=== PATIENT | male | born 1980 ===

== ENCOUNTER 2022-06-14 23:56 | Inpatient (IN) ==
[2022-06-15] MEDS ORDERED: Lactated Ringers 1000 ml BAG 1,000 ML IV ONE ×3 (00:12→14:34)
[2022-06-15 00:42] LABS: ABS Basophils 0.1 10^3/ul (0-0.2); ABS Lymphocytes 1.2 10^3/ul (1.0-4.8); ABS Monocytes 0.7 10^3/ul (0-0.8); ABS Neutrophils 15.1 10^3/ul (1.5-7.7); Eosinophil % 0.1 %; Hematocrit 45 % (42-52); Hemoglobin 15.1 g/dL (14.0-18.0); Lymphocyte % 7.2 %; Mean Corpuscular HGB Conc 33 g/dL (31-36); Mean Corpuscular Hemoglobin 29 pg (27-31); Mean Corpuscular Volume 86 fL (80-94); Mean Platelet Volume 8.1 fL (7.4-10.4); Platelet Count 294 10^3/uL (150-450); Red Blood Count 5.26 10^6 /uL (4.18-5.48); Red Cell Distribution Width 13 % (10-15)
[2022-06-15 01:04] LABS: High Sens Troponin Baseline 12 pg/mL (<20)
[2022-06-15 01:06] LABS: ALT 77 U/L (7-52); AST 192 U/L (13-39); Acetaminophen < 15 mcg/mL; Albumin 4.4 g/dL (3.2-5.2); Albumin/Globulin Ratio 1.4 (1-3); Alcohol, S < 13 mg/dL (<13); Alkaline Phosphatase 80 U/L (35-149); Anion Gap 14 mmol/L (2-11); Blood Urea Nitrogen 27 mg/dL (6-24); C Reactive Protein 125.11 mg/L (<8.01); CO2 Carbon Dioxide 22 mmol/L (22-32); Calcium 9.9 mg/dL (8.6-10.3); Chloride 100 mmol/L (101-111); Globulin 3.1 g/dL (2-4); Glucose 123 mg/dL (70-100); Potassium 4.1 mmol/L (3.5-5.0); Sodium 136 mmol/L (135-145); Total Protein 7.5 g/dL (6.4-8.9); eGFR CKD-EPI 103.2 (>60)
[2022-06-15 01:26] LABS: Creatine Kinase 8966 U/L (10-223)
[2022-06-15 02:23] LABS: Magnesium 2.1 mg/dL (1.9-2.7)
[2022-06-15 02:24] LABS: High Sensitivity Troponin 1 Hr 6 pg/mL (<20)
[2022-06-15] MEDS ORDERED: Labetalol IV 5 MG/ML 20 ml VIAL IV PUSH ONE (03:45)
[2022-06-15] MEDS ORDERED: NS 0.9% 1000 ml BAG 1,000 ML IV SCH ×2 (03:45→09:12)
[2022-06-15 04:11] LABS: Salicylate < 2.50 mg/dL (<30)
[2022-06-15] MEDS ORDERED: cefTRIAXone 2 gm/50 mL D5W 2 GM/50 ML BAG IV SCH (05:00)
[2022-06-15 05:47] LABS: Urine Appearance Clear; Urine Benzodiazepine Screen Presumptive Positive (None Detect); Urine Bilirubin Negative (Negative); Urine Blood 2+ (Negative); Urine Cannabinoids Screen Presumptive Positive (None Detect); Urine Color Amber; Urine Glucose Negative (Negative); Urine Ketones Trace (Negative); Urine Nitrite Negative (Negative); Urine Opiates Screen Presumptive Positive (None Detect); Urine Protein 1+(30 mg/dL) (Negative); Urine Specific Gravity 1.029 (1.002-1.030); Urine Urobilinogen Positive (Negative)
[2022-06-15 06:02] LABS: Urine Bacteria Absent (Absent); Urine Red Blood Cell 3+(>10/hpf) (Absent); Urine White Blood Cell Trace(0-5/hpf) (Absent)
[2022-06-15 06:33] LABS: ABS Lymphocytes 1.1 10^3/ul (1.0-4.8); ABS Monocytes 0.6 10^3/ul (0-0.8); ABS Neutrophils 12.1 10^3/ul (1.5-7.7); Eosinophil % 0.1 %; Hematocrit 39 % (42-52); Hemoglobin 13.3 g/dL (14.0-18.0); Lymphocyte % 8.1 %; Mean Corpuscular HGB Conc 34 g/dL (31-36); Mean Corpuscular Hemoglobin 29 pg (27-31); Mean Corpuscular Volume 85 fL (80-94); Mean Platelet Volume 8.2 fL (7.4-10.4); Platelet Count 267 10^3/uL (150-450); Red Blood Count 4.65 10^6 /uL (4.18-5.48); Red Cell Distribution Width 13 % (10-15); White Blood Count 13.8 10^3/uL (3.5-10.8)
[2022-06-15 07:21] LABS: ALT 58 U/L (7-52); Albumin 3.7 g/dL (3.2-5.2); Albumin/Globulin Ratio 1.4 (1-3); Alkaline Phosphatase 64 U/L (35-149); Blood Urea Nitrogen 24 mg/dL (6-24); CO2 Carbon Dioxide 24 mmol/L (22-32); Calcium 8.9 mg/dL (8.6-10.3); Chloride 103 mmol/L (101-111); Globulin 2.7 g/dL (2-4); Glucose 123 mg/dL (70-100); Sodium 138 mmol/L (135-145); Total Protein 6.4 g/dL (6.4-8.9)
[2022-06-15 07:34] LABS: HIV 4th Generation Nonreactive (Nonreactive)
[2022-06-15 07:44] LABS: Anion Gap 11 mmol/L (2-11)
[2022-06-15] MEDS: Azithromycin 500 mg/250 ml NS 500 MG/250 ML BAG IVPB SCH (08:04)
[2022-06-15] MEDS ORDERED: Iohexol 350 (CONTRAST) 500 ML MDV IV ONE (09:18)
[2022-06-15] MEDS ORDERED: Rocuronium 50 mg VIAL 10 mg/ml 5 ml VIAL (50 mg) IV ONE (09:25)
[2022-06-15] MEDS ORDERED: Etomidate 20 mg/10 ml 2 MG/ML 10 ml VIAL IV ONE ×2 (09:25→09:40)
[2022-06-15] MEDS ORDERED: Succinylcholine 200 mg VIAL 20 mg/ml 10 ml VIAL (200 mg) ONE (09:26)
[2022-06-15] MEDS ORDERED: Rocuronium 50 mg VIAL 10 mg/ml 5 ml VIAL (50 mg) ONE (09:26)
[2022-06-15] MEDS ORDERED: Etomidate 40 mg/20 ml (2 MG/ML) 20 ml VIAL (40 mg) ONE (09:41)
[2022-06-15] MEDS ORDERED: Propofol 10 mg/ml 100 ML BTL 100 ML ONE ×2 (09:45→12:57)
[2022-06-15] MEDS ORDERED: Propofol 10 mg/ml 100 ML BTL 100 ML IV SCH ×2 (10:00→11:03)
[2022-06-15] MEDS ORDERED: Zosyn per Pharmacy NOTE FOLLOW UP SCH (10:00)
[2022-06-15 10:21] LABS: Potassium Redraw 3.8 mmol/L (3.5-5.0)
[2022-06-15] MEDS ORDERED: Artificial Tear OPHTH.OINT 3.5 GM BOTH EYES PRN (11:02)
[2022-06-15] MEDS ORDERED: Labetalol IV 5 MG/ML 20 ml VIAL IV PUSH PRN (11:03)
[2022-06-15] MEDS: Pantoprazole VIAL 40 MG VIAL IV SCH (11:19)
[2022-06-15] MEDS: Enoxaparin 40 MG/0.4 ML SYR SUBCUT SCH (11:19)
[2022-06-15] MEDS ORDERED: ZOSYN 3.375 GM x ONE DOSE over 30 miuntes IV (11:30)
[2022-06-15 11:36] LABS: Hepatitis C Antibody Negative (Negative)
[2022-06-15 12:12] LABS: Creatine Kinase 5140 U/L (10-223)
[2022-06-15] MEDS: Chlorhexidine MOUTHWASH 0.12% 15 ML UDC TOPICAL SCH ×3 (12:37→21:19)
[2022-06-15] MEDS: ZOSYN 3.375 GM Q8H per EXTENDED INFUSION IV SCH (14:45)
[2022-06-15 14:46] LABS: Urine Appearance Clear; Urine Bacteria Absent (Absent); Urine Bilirubin Negative (Negative); Urine Blood 2+ (Negative); Urine Color Yellow; Urine Glucose Negative (Negative); Urine Ketones Negative (Negative); Urine Nitrite Negative (Negative); Urine Protein 1+(30 mg/dL) (Negative); Urine Red Blood Cell 3+(>10/hpf) (Absent); Urine Squamous Epithelial Cell Present (Absent); Urine Urobilinogen Negative (Negative); Urine White Blood Cell Absent (Absent)
[2022-06-15 14:53] LABS: Urine Specific Gravity > 1.060 (1.002-1.030)
[2022-06-15] MEDS: Lactated Ringers 1000 ml BAG 1,000 ML IV SCH ×2 (15:14→23:37)
[2022-06-15] MEDS: Propofol 10 mg/ml 100 ML BTL 100 ML IV SCH (16:51)
[2022-06-15] MEDS: Acetaminophen IV 1 GM/100ML 1,000 MG/100 ML BAG IV PRN (17:16)
[2022-06-15] MEDS ORDERED: Dexmedetomidine 1,000 MCG in NS 0.9% 250 ml 240 ML IV SCH (18:00)
[2022-06-15] MEDS ORDERED: KCL 20 MEQ/100 ML IVPREMIX 20 MEQ/100 ML BAG IV ONE (18:37)
[2022-06-16] MEDS: ZOSYN 3.375 GM Q8H per EXTENDED INFUSION IV SCH ×3 (01:00→14:55)
[2022-06-16] MEDS: Chlorhexidine MOUTHWASH 0.12% 15 ML UDC TOPICAL SCH ×4 (01:00→10:41)
[2022-06-16] MEDS: Propofol 10 mg/ml 100 ML BTL 100 ML IV SCH (02:53)
[2022-06-16] MEDS ORDERED: cefTRIAXone 1 gm/50 mL D5W 1 GM/50 ML BAG IV SCH (06:00)
[2022-06-16 06:13] LABS: ABS Basophils 0.1 10^3/ul (0-0.2); ABS Lymphocytes 1.5 10^3/ul (1.0-4.8); ABS Monocytes 0.4 10^3/ul (0-0.8); ABS Neutrophils 13.3 10^3/ul (1.5-7.7); Eosinophil % 0.1 %; Hematocrit 40 % (42-52); Hemoglobin 13.5 g/dL (14.0-18.0); Lymphocyte % 9.8 %; Mean Corpuscular HGB Conc 34 g/dL (31-36); Mean Corpuscular Hemoglobin 30 pg (27-31); Mean Corpuscular Volume 88 fL (80-94); Mean Platelet Volume 8.9 fL (7.4-10.4); Platelet Count 216 10^3/uL (150-450); Red Blood Count 4.58 10^6 /uL (4.18-5.48); Red Cell Distribution Width 13 % (10-15); White Blood Count 15.3 10^3/uL (3.5-10.8)
[2022-06-16 06:50] LABS: Calcium 8.6 mg/dL (8.6-10.3); Magnesium 1.9 mg/dL (1.9-2.7); Phosphorus 4.2 mg/dL (2.5-5.0); Potassium 4.1 mmol/L (3.5-5.0); eGFR CKD-EPI 89.3 (>60)
[2022-06-16] MEDS: Enoxaparin 40 MG/0.4 ML SYR SUBCUT SCH (07:29)
[2022-06-16] MEDS: Pantoprazole VIAL 40 MG VIAL IV SCH (07:29)
[2022-06-16] MEDS: Linezolid 600 MG IVPREMIX(*) 600 MG/300 ML BAG IVPB SCH ×2 (07:29→17:11)
[2022-06-16] MEDS: Lactated Ringers 1000 ml BAG 1,000 ML IV SCH ×2 (07:37→14:55)
[2022-06-16] MEDS: Azithromycin 500 mg/250 ml NS 500 MG/250 ML BAG IVPB SCH (08:29)
[2022-06-16 11:59] LABS: Urine Chloride Concentration < 22 mmol/L; Urine Creatinine Concentration 223.86 mg/dL; Urine Potassium Concentration 137.8 mmol/L; Urine Sodium Concentration < 18 mmol/L
[2022-06-16 12:18] LABS: Urine Osmo 1049 mOsm/kg (150-1150)
[2022-06-16] MEDS ORDERED: Lactated Ringers 1000 ml BAG 1,000 ML IV ONE (15:03)
[2022-06-17] MEDS: ZOSYN 3.375 GM Q8H per EXTENDED INFUSION IV SCH ×3 (00:16→15:15)
[2022-06-17 05:15] LABS: ABS Basophils 0.1 10^3/ul (0-0.2); ABS Eosinophils 0.1 10^3/ul (0-0.6); ABS Lymphocytes 1.8 10^3/ul (1.0-4.8); ABS Monocytes 0.5 10^3/ul (0-0.8); ABS Neutrophils 9.4 10^3/ul (1.5-7.7); Eosinophil % 0.7 %; Hematocrit 31 % (42-52); Hemoglobin 10.1 g/dL (14.0-18.0); Lymphocyte % 15.2 %; Mean Corpuscular HGB Conc 33 g/dL (31-36); Mean Corpuscular Hemoglobin 28 pg (27-31); Mean Corpuscular Volume 86 fL (80-94); Platelet Count 203 10^3/uL (150-450); Red Blood Count 3.58 10^6 /uL (4.18-5.48); Red Cell Distribution Width 13 % (10-15); White Blood Count 11.9 10^3/uL (3.5-10.8)
[2022-06-17 05:47] LABS: Albumin 3.1 g/dL (3.2-5.2); Albumin/Globulin Ratio 1.6 (1-3); Direct Bilirubin 0.1 mg/dL (0.03-0.18); Indirect Bilirubin 0.5 mg/dL (0.3-1.0); Magnesium 1.6 mg/dL (1.9-2.7); Phosphorus 2.8 mg/dL (2.5-5.0); Potassium 2.9 mmol/L (3.5-5.0); Total Bilirubin 0.6 mg/dL (0.2-1.0); Total Protein 5.1 g/dL (6.4-8.9); eGFR CKD-EPI 111.4 (>60)
[2022-06-17] MEDS: Linezolid 600 MG IVPREMIX(*) 600 MG/300 ML BAG IVPB SCH ×2 (06:40→18:31)
[2022-06-17 06:47] LABS: ABS Eosinophils 0.1 10^3/ul (0-0.6); ABS Lymphocytes 1.4 10^3/ul (1.0-4.8); ABS Monocytes 0.5 10^3/ul (0-0.8); ABS Neutrophils 8.8 10^3/ul (1.5-7.7); Eosinophil % 1.1 %; Hematocrit 29 % (42-52); Lymphocyte % 12.5 %; Mean Corpuscular HGB Conc 34 g/dL (31-36); Mean Corpuscular Hemoglobin 29 pg (27-31); Mean Corpuscular Volume 86 fL (80-94); Mean Platelet Volume 8.2 fL (7.4-10.4); Platelet Count 197 10^3/uL (150-450); Red Blood Count 3.39 10^6 /uL (4.18-5.48); Red Cell Distribution Width 13 % (10-15); White Blood Count 10.8 10^3/uL (3.5-10.8)
[2022-06-17] MEDS ORDERED: Magnesium Sulfate 2 gm BAG 2 GM/50 ML BAG IVPB ONE (07:14)
[2022-06-17] MEDS: Enoxaparin 40 MG/0.4 ML SYR SUBCUT SCH (07:24)
[2022-06-17] MEDS: Pantoprazole VIAL 40 MG VIAL IV SCH (07:24)
[2022-06-17 07:37] LABS: Calcium 7.8 mg/dL (8.6-10.3); Magnesium 1.7 mg/dL (1.9-2.7); Phosphorus 3.5 mg/dL (2.5-5.0); eGFR CKD-EPI 111.4 (>60)
[2022-06-17] MEDS: KCL 20 MEQ/100 ML IVPREMIX 20 MEQ/100 ML BAG IV SCH ×4 (07:52→13:18)
[2022-06-17] MEDS: Azithromycin 500 mg/250 ml NS 500 MG/250 ML BAG IVPB SCH (07:52)
[2022-06-17] MEDS: Acetaminophen IV 1 GM/100ML 1,000 MG/100 ML BAG IV PRN (12:08)
[2022-06-18] MEDS: ZOSYN 3.375 GM Q8H per EXTENDED INFUSION IV SCH ×2 (00:11→08:17)
[2022-06-18 03:57] LABS: ABS Basophils 0.1 10^3/ul (0-0.2); ABS Eosinophils 0.3 10^3/ul (0-0.6); ABS Lymphocytes 1.9 10^3/ul (1.0-4.8); ABS Monocytes 0.4 10^3/ul (0-0.8); ABS Neutrophils 8.2 10^3/ul (1.5-7.7); Eosinophil % 2.9 %; Hematocrit 33 % (42-52); Hemoglobin 11.1 g/dL (14.0-18.0); Lymphocyte % 17.4 %; Mean Corpuscular HGB Conc 33 g/dL (31-36); Mean Corpuscular Hemoglobin 29 pg (27-31); Mean Corpuscular Volume 86 fL (80-94); Mean Platelet Volume 7.9 fL (7.4-10.4); Platelet Count 229 10^3/uL (150-450); Red Blood Count 3.85 10^6 /uL (4.18-5.48); Red Cell Distribution Width 13 % (10-15); White Blood Count 10.9 10^3/uL (3.5-10.8)
[2022-06-18 04:36] LABS: Calcium 8.3 mg/dL (8.6-10.3); Magnesium 1.6 mg/dL (1.9-2.7); Phosphorus 4.1 mg/dL (2.5-5.0); Potassium 3.2 mmol/L (3.5-5.0); eGFR CKD-EPI 113.9 (>60)
[2022-06-18] MEDS: Linezolid 600 MG IVPREMIX(*) 600 MG/300 ML BAG IVPB SCH (08:09)
[2022-06-18] MEDS ORDERED: Magnesium Sulfate 2 gm BAG 2 GM/50 ML BAG IVPB ONE (08:38)
[2022-06-18] MEDS ORDERED: Potassium Chloride LIQUID 20 MEQ/15 ML LIQUID PO SCH (08:54)
[2022-06-18] MEDS ORDERED: KCL 20 MEQ/100 ML IVPREMIX 20 MEQ/100 ML BAG IV ONE (08:55)
[2022-06-18] MEDS ORDERED: KCL 20 MEQ/100 ML IVPREMIX 20 MEQ/100 ML BAG IV SCH (09:00)
[2022-06-18] MEDS: Enoxaparin 40 MG/0.4 ML SYR SUBCUT SCH (09:23)
[2022-06-18 10:44] VITALS: BP 160/102
== END 2022-06-18 10:15 | disposition left against medical advice (07) | DRG 720 ==
LOC: ED 23:56 → EDHOLD 06-15 03:24 → SUATTDRO 06-15 03:24 → ICU 06-15 13:47
PROVIDERS: ADMIT Internal Medicine; ATTEND Internal Medicine

== ENCOUNTER 2022-06-26 03:22 | Inpatient (IN) ==
[2022-06-26 03:56] LABS: ABS Lymphocytes 0.7 10^3/ul (1.0-4.8); ABS Monocytes 0.5 10^3/ul (0-0.8); ABS Neutrophils 18.7 10^3/ul (1.5-7.7); Hematocrit 40 % (42-52); Hemoglobin 13.3 g/dL (14.0-18.0); Lymphocyte % 3.3 %; Mean Corpuscular HGB Conc 33 g/dL (31-36); Mean Corpuscular Hemoglobin 28 pg (27-31); Mean Corpuscular Volume 85 fL (80-94); Mean Platelet Volume 6.9 fL (7.4-10.4); Platelet Count 412 10^3/uL (150-450); Red Blood Count 4.73 10^6 /uL (4.18-5.48); Red Cell Distribution Width 13 % (10-15); White Blood Count 19.9 10^3/uL (3.5-10.8)
[2022-06-26] MEDS ORDERED: Lactated Ringers 1000 ml BAG 1,000 ML IV ONE (03:56)
[2022-06-26 04:44] LABS: ALT 58 U/L (7-52); AST 134 U/L (13-39); Acetaminophen < 15 mcg/mL; Albumin 3.8 g/dL (3.2-5.2); Albumin/Globulin Ratio 1.5 (1-3); Alcohol, S < 13 mg/dL (<13); Alkaline Phosphatase 62 U/L (35-149); Anion Gap 11 mmol/L (2-11); Blood Urea Nitrogen 13 mg/dL (6-24); CO2 Carbon Dioxide 26 mmol/L (22-32); Chloride 98 mmol/L (101-111); Globulin 2.6 g/dL (2-4); Glucose 124 mg/dL (70-100); Magnesium 1.7 mg/dL (1.9-2.7); Potassium 3.8 mmol/L (3.5-5.0); Salicylate < 2.50 mg/dL (<30); Sodium 135 mmol/L (135-145); Total Protein 6.4 g/dL (6.4-8.9); eGFR CKD-EPI 104.5 (>60)
[2022-06-26] MEDS ORDERED: Magnesium Sulfate 2 gm BAG 2 GM/50 ML BAG IVPB ONE (04:53)
[2022-06-26] MEDS ORDERED: Clindamycin 600 MG/D5W BAG 600 MG/50 ML BAG IV ONE (07:06)
[2022-06-26] MEDS ORDERED: NS 0.9% 1000 ml BAG 1,000 ML IV ONE (07:08)
[2022-06-26 08:31] LABS: Urine Appearance Turbid; Urine Bilirubin Negative (Negative); Urine Blood 3+ (Negative); Urine Color Yellow; Urine Glucose Negative (Negative); Urine Ketones Trace (Negative); Urine Nitrite Negative (Negative); Urine Protein 1+(30 mg/dL) (Negative); Urine Urobilinogen Negative (Negative)
[2022-06-26 08:33] LABS: CRP High Sensitivity 60.67 mg/L (<2.00)
[2022-06-26 08:35] LABS: Urine Amorphous Crystals Present (Absent); Urine Bacteria Absent (Absent); Urine Red Blood Cell Absent (Absent); Urine White Blood Cell Trace(0-5/hpf) (Absent)
[2022-06-26 08:49] LABS: Urine Benzodiazepine Screen Presumptive Positive (None Detect); Urine Cannabinoids Screen Presumptive Positive (None Detect); Urine Opiates Screen Presumptive Positive (None Detect)
[2022-06-26] MEDS ORDERED: Acetaminophen PED 160 mg/5 ml UDC PO ONE (09:37)
[2022-06-26] MEDS ORDERED: Vancomycin 1,000 MG in NS 0.9% 250 ml 250 ML IVPB ONE (11:25)
[2022-06-26] MEDS ORDERED: cefTRIAXone VIAL 1,000 MG in NS 0.9% 50 ML 50 ML IVPB SCH (12:00)
[2022-06-26] MEDS ORDERED: Vancomycin per Pharmacy 1 EA NOTE FOLLOW UP SCH (12:00)
[2022-06-26] MEDS ORDERED: Thiamine 100 MG/ML 2 ml VIAL (200 mg) IM ONE (13:16)
[2022-06-26] MEDS ORDERED: LORazepam 2 mg VIAL 1 ml IV PUSH SCH (14:00)
[2022-06-26] MEDS: cefTRIAXone 1 gm/50 mL D5W 1 GM/50 ML BAG IV SCH (14:20)
[2022-06-26] MEDS: NS 0.9% 1000 ml BAG 1,000 ML IV SCH ×2 (14:29→19:33)
[2022-06-26] MEDS: Multivitamins/Minerals TAB PO SCH (14:34)
[2022-06-26] MEDS: Enoxaparin 40 MG/0.4 ML SYR SUBCUT SCH (17:05)
[2022-06-26 18:14] LABS: Phosphorus 3.9 mg/dL (2.5-5.0)
[2022-06-26 19:03] LABS: Calcium 7.9 mg/dL (8.6-10.3); Potassium 3.5 mmol/L (3.5-5.0); eGFR CKD-EPI 110.2 (>60)
[2022-06-26] MEDS: Vancomycin 1,500 MG in NS 0.9% 250 ml 250 ML IVPB SCH (21:29)
[2022-06-27] MEDS: NS 0.9% 1000 ml BAG 1,000 ML IV SCH ×3 (04:30→23:43)
[2022-06-27] MEDS: Vancomycin 1,500 MG in NS 0.9% 250 ml 250 ML IVPB SCH ×2 (06:09→19:36)
[2022-06-27 07:45] LABS: Hematocrit 32 % (42-52); Hemoglobin 10.9 g/dL (14.0-18.0); Mean Corpuscular HGB Conc 34 g/dL (31-36); Mean Corpuscular Hemoglobin 28 pg (27-31); Mean Corpuscular Volume 85 fL (80-94); Mean Platelet Volume 6.9 fL (7.4-10.4); Platelet Count 322 10^3/uL (150-450); Red Blood Count 3.83 10^6 /uL (4.18-5.48); Red Cell Distribution Width 13 % (10-15); White Blood Count 11.4 10^3/uL (3.5-10.8)
[2022-06-27] MEDS: Nicotine PATCH 21 MG/24 HR PATCH TRANSDERM SCH (07:56)
[2022-06-27] MEDS: Multivitamins/Minerals TAB PO SCH ×2 (07:57→12:28)
[2022-06-27 08:10] LABS: Magnesium 1.6 mg/dL (1.9-2.7); Phosphorus 2.6 mg/dL (2.5-5.0); Potassium 3.4 mmol/L (3.5-5.0)
[2022-06-27] MEDS ORDERED: Potassium Chlor 20 meq TAB.ER PO ONE (08:56)
[2022-06-27] MEDS ORDERED: Nicotine PATCH 14 MG/24 HR PATCH TRANSDERM SCH (09:00)
[2022-06-27] MEDS ORDERED: Magnesium Sulfate IV 3 GM in NS 0.9% 100 ml BAG 100 ML IVPB ONE (10:00)
[2022-06-27 10:02] LABS: Albumin 3.1 g/dL (3.2-5.2); Albumin/Globulin Ratio 1.4 (1-3); Globulin 2.2 g/dL (2-4); HDL Cholesterol 29.8 mg/dL; Total Bilirubin 0.5 mg/dL (0.2-1.0); Total Protein 5.3 g/dL (6.4-8.9)
[2022-06-27 10:16] LABS: Urine Appearance Cloudy; Urine Bilirubin Negative (Negative); Urine Blood 2+ (Negative); Urine Color Yellow; Urine Glucose Negative (Negative); Urine Ketones Negative (Negative); Urine Nitrite Negative (Negative); Urine Protein Negative (Negative); Urine Specific Gravity 1.019 (1.002-1.030); Urine Urobilinogen Negative (Negative)
[2022-06-27] MEDS ORDERED: Iodixanol (CONTRAST) 320 MG/ML 100 ML SDV IV ONE (10:20)
[2022-06-27 10:56] LABS: Urine Bacteria 1+ (Absent); Urine Red Blood Cell 3+(>10/hpf) (Absent); Urine White Blood Cell Absent (Absent)
[2022-06-27] MEDS ORDERED: LORazepam 2 mg VIAL 1 ml IV PUSH SCH (11:12)
[2022-06-27] MEDS ORDERED: Lorazepam PYXIS KEY PRN ×2 (11:16→17:11)
[2022-06-27] MEDS ORDERED: NS 0.9% 1000 ml BAG 1,000 ML IV SCH (12:24)
[2022-06-27 12:43] LABS: Activated Partial Thrombo Time 29.4 seconds (26.0-38.0); INR 1.42 (0.89-1.11)
[2022-06-27 13:07] LABS: Calcium 8.1 mg/dL (8.6-10.3); Potassium 3.5 mmol/L (3.5-5.0); eGFR CKD-EPI 117.8 (>60)
[2022-06-27] MEDS: cefTRIAXone 1 gm/50 mL D5W 1 GM/50 ML BAG IV SCH (16:07)
[2022-06-27] MEDS: Enoxaparin 40 MG/0.4 ML SYR SUBCUT SCH (16:07)
[2022-06-27] MEDS: LORazepam 2 mg VIAL 1 ml IV PUSH SCH ×5 (16:07→23:44)
[2022-06-27] MEDS ORDERED: LORazepam 2 mg VIAL 1 ml IV PUSH PRN (17:11)
[2022-06-27] MEDS: Buprenorp/Nalox 8-2 MG FILM SL FILM SCH (19:36)
[2022-06-27] MEDS ORDERED: Nicotine PATCH 21 MG/24 HR PATCH TRANSDERM ONE (22:06)
[2022-06-28] MEDS ORDERED: Lorazepam PYXIS KEY PRN ×4 (00:51→18:16)
[2022-06-28] MEDS ORDERED: LORazepam 2 mg VIAL 1 ml IV PUSH ONE ×5 (00:51→18:17)
[2022-06-28] MEDS: LORazepam 2 mg VIAL 1 ml IV PUSH SCH ×8 (01:16→23:05)
[2022-06-28] MEDS: Buprenorp/Nalox 8-2 MG FILM SL FILM SCH ×3 (03:16→20:37)
[2022-06-28] MEDS: NS 0.9% 1000 ml BAG 1,000 ML IV SCH ×3 (05:04→12:18)
[2022-06-28] MEDS ORDERED: Vancomycin Trough Check NOTE FOLLOW UP ONE (05:30)
[2022-06-28 07:15] LABS: Hematocrit 28 % (42-52); Hemoglobin 9.6 g/dL (14.0-18.0); Mean Corpuscular HGB Conc 34 g/dL (31-36); Mean Corpuscular Hemoglobin 29 pg (27-31); Mean Corpuscular Volume 85 fL (80-94); Mean Platelet Volume 7.4 fL (7.4-10.4); Platelet Count 306 10^3/uL (150-450); Red Blood Count 3.32 10^6 /uL (4.18-5.48); Red Cell Distribution Width 13 % (10-15); White Blood Count 7.7 10^3/uL (3.5-10.8)
[2022-06-28 07:45] LABS: Calcium 7.8 mg/dL (8.6-10.3); Magnesium 1.8 mg/dL (1.9-2.7); Phosphorus 2.4 mg/dL (2.5-5.0); Potassium 3.1 mmol/L (3.5-5.0); eGFR CKD-EPI 122.2 (>60)
[2022-06-28] MEDS ORDERED: Magnesium Sulfate IV 3 GM in NS 0.9% 100 ml BAG 100 ML IVPB ONE (08:40)
[2022-06-28] MEDS: Vancomycin 1,500 MG in NS 0.9% 250 ml 250 ML IVPB SCH (08:47)
[2022-06-28] MEDS ORDERED: Nicotine GUM 4MG FRUIT FLAVOR PO PRN (08:59)
[2022-06-28] MEDS: Multivitamins/Minerals TAB PO SCH (11:46)
[2022-06-28] MEDS: Nicotine PATCH 21 MG/24 HR PATCH TRANSDERM SCH (11:46)
[2022-06-28] MEDS ORDERED: LORazepam 2 mg VIAL 1 ml IV PUSH PRN ×2 (11:54→16:01)
[2022-06-28] MEDS: KCL 20 MEQ/100 ML IVPREMIX 20 MEQ/100 ML BAG IV SCH ×4 (12:19→22:25)
[2022-06-28] MEDS ORDERED: Piperacillin/Tazobac ADVAN 3.375 GM in NS 0.9% 100 ml BAG 100 ML IV ONE (16:57)
[2022-06-28] MEDS ORDERED: Vancomycin 1,250 MG in NS 0.9% 250 ml 250 ML IVPB SCH (17:00)
[2022-06-28] MEDS ORDERED: Zosyn per Pharmacy NOTE FOLLOW UP SCH (17:00)
[2022-06-28] MEDS ORDERED: Naloxone 0.4 mg VIAL 0.4 mg/ml 1 ml VIAL IV PUSH PRN (17:07)
[2022-06-28] MEDS: cefTRIAXone 1 gm/50 mL D5W 1 GM/50 ML BAG IV SCH (18:00)
[2022-06-28] MEDS ORDERED: Ziprasidone IM 20 mg VIAL 1 ml VIAL IM ONE (18:00)
[2022-06-28] MEDS ORDERED: Ziprasidone IM 20 mg VIAL 1 ml VIAL IM PRN (18:16)
[2022-06-28] MEDS: Enoxaparin 40 MG/0.4 ML SYR SUBCUT SCH (20:43)
[2022-06-29] MEDS: LORazepam 2 mg VIAL 1 ml IV PUSH SCH ×4 (01:30→07:38)
[2022-06-29] MEDS: Buprenorp/Nalox 8-2 MG FILM SL FILM SCH ×5 (01:33→23:40)
[2022-06-29] MEDS: ZOSYN 3.375 GM Q8H per EXTENDED INFUSION IV SCH ×2 (01:40→08:58)
[2022-06-29] MEDS: NS 0.9% 1000 ml BAG 1,000 ML IV SCH ×3 (01:44→15:30)
[2022-06-29] MEDS: Nicotine PATCH 21 MG/24 HR PATCH TRANSDERM SCH (07:39)
[2022-06-29 08:13] LABS: Hematocrit 30 % (42-52); Hemoglobin 10.3 g/dL (14.0-18.0); Mean Corpuscular HGB Conc 34 g/dL (31-36); Mean Corpuscular Hemoglobin 29 pg (27-31); Mean Corpuscular Volume 85 fL (80-94); Mean Platelet Volume 7.1 fL (7.4-10.4); Platelet Count 379 10^3/uL (150-450); Red Blood Count 3.58 10^6 /uL (4.18-5.48); Red Cell Distribution Width 13 % (10-15); White Blood Count 7.2 10^3/uL (3.5-10.8)
[2022-06-29 08:39] LABS: Calcium 8.1 mg/dL (8.6-10.3); Magnesium 1.7 mg/dL (1.9-2.7); Phosphorus 2.9 mg/dL (2.5-5.0); eGFR CKD-EPI 114.8 (>60)
[2022-06-29] MEDS: Multivitamins/Minerals TAB PO SCH (08:59)
[2022-06-29] MEDS ORDERED: Potassium Chlor 20 meq TAB.ER PO ONE ×3 (09:29→16:21)
[2022-06-29] MEDS ORDERED: Magnesium Sulf 4 GM/100 ML IV 4,000 MG/100 ML BAG IVPB ONE (10:30)
[2022-06-29] MEDS ORDERED: diazePAM INJ CARPUJECT 5 MG/ML SYRINGE IV ONE (14:49)
[2022-06-29] MEDS: Enoxaparin 40 MG/0.4 ML SYR SUBCUT SCH (17:05)
[2022-06-30 05:36] LABS: Hematocrit 31 % (42-52); Hemoglobin 10.9 g/dL (14.0-18.0); Mean Corpuscular HGB Conc 35 g/dL (31-36); Mean Corpuscular Hemoglobin 29 pg (27-31); Mean Corpuscular Volume 84 fL (80-94); Mean Platelet Volume 6.7 fL (7.4-10.4); Platelet Count 392 10^3/uL (150-450); Red Blood Count 3.72 10^6 /uL (4.18-5.48); Red Cell Distribution Width 13 % (10-15); White Blood Count 7.7 10^3/uL (3.5-10.8)
[2022-06-30 06:06] LABS: Calcium 8.4 mg/dL (8.6-10.3); Magnesium 1.8 mg/dL (1.9-2.7); Phosphorus 3.4 mg/dL (2.5-5.0); Potassium 3.3 mmol/L (3.5-5.0); eGFR CKD-EPI 118.3 (>60)
[2022-06-30] MEDS: Buprenorp/Nalox 8-2 MG FILM SL FILM SCH ×4 (06:10→23:31)
[2022-06-30] MEDS: NS 0.9% 1000 ml BAG 1,000 ML IV SCH (07:10)
[2022-06-30] MEDS ORDERED: Magnesium Sulfate 2 gm BAG 2 GM/50 ML BAG IVPB ONE (07:43)
[2022-06-30] MEDS ORDERED: Potassium Chlor 20 meq TAB.ER PO ONE (07:43)
[2022-06-30] MEDS: Multivitamins/Minerals TAB PO SCH (08:05)
[2022-06-30] MEDS: Nicotine PATCH 21 MG/24 HR PATCH TRANSDERM SCH (08:05)
[2022-06-30] MEDS ORDERED: Vancomycin Trough Check NOTE FOLLOW UP ONE (08:30)
[2022-06-30] MEDS ORDERED: LORazepam 2 mg VIAL 1 ml IV PUSH ONE (11:25)
[2022-06-30] MEDS ORDERED: Lorazepam PYXIS KEY PRN (11:25)
[2022-06-30] MEDS ORDERED: Ziprasidone IM 20 mg VIAL 1 ml VIAL IM ONE (11:54)
[2022-06-30] MEDS: Enoxaparin 40 MG/0.4 ML SYR SUBCUT SCH (16:58)
[2022-07-01] MEDS: Buprenorp/Nalox 8-2 MG FILM SL FILM SCH ×2 (06:00→11:31)
[2022-07-01 07:01] LABS: ABS Basophils 0.1 10^3/ul (0-0.2); ABS Eosinophils 0.2 10^3/ul (0-0.6); ABS Lymphocytes 2.6 10^3/ul (1.0-4.8); ABS Monocytes 0.4 10^3/ul (0-0.8); ABS Neutrophils 3.9 10^3/ul (1.5-7.7); Eosinophil % 2.9 %; Hematocrit 35 % (42-52); Mean Corpuscular HGB Conc 34 g/dL (31-36); Mean Corpuscular Hemoglobin 29 pg (27-31); Mean Corpuscular Volume 85 fL (80-94); Mean Platelet Volume 7.2 fL (7.4-10.4); Nucleated Red Blood Cells % 0.2; Platelet Count 459 10^3/uL (150-450); Red Blood Count 4.18 10^6 /uL (4.18-5.48); Red Cell Distribution Width 13 % (10-15); White Blood Count 7.3 10^3/uL (3.5-10.8)
[2022-07-01 07:21] LABS: Calcium 8.9 mg/dL (8.6-10.3); Potassium 3.9 mmol/L (3.5-5.0); eGFR CKD-EPI 111.4 (>60)
[2022-07-01] MEDS: Nicotine PATCH 21 MG/24 HR PATCH TRANSDERM SCH (11:25)
[2022-07-01] MEDS: Multivitamins/Minerals TAB PO SCH (11:28)
[2022-07-01 13:37] VITALS: BP 157/100
== END 2022-07-01 13:11 | disposition home or self-care (01) | DRG 52 ==
LOC: ED 03:22 → EDHOLD 03:22 → MED 16:37 → MEDTELE 06-27 14:01 → SUATTDRO 06-28 12:04
PROVIDERS: ADMIT Internal Medicine; ATTEND Hospitalist